=== PATIENT | male | born 1940 | race Caucasian/White ===

== ENCOUNTER 2016-11-13 11:37 | Day surgery (SDC) | payer OTHER ==
[~2016-11-13 11:37] MED LIST: CALTRA600D PO; CELEXA40 MG PO; CRESTOR10 PO; FISH-EPA1000 MG PO; FLAXSEED OIL1000 MG PO; GLUCCHONDR PO; LEVOTHYROXIN75 MCG PO; MULTIVITAMI1 PO; NEXIUM40 PO; PRILOSEC40 MG PO
[2016-11-13 12:16] LABS: BASOPHILS 0.3 %; BASOPHILS ABSOLUTE 0.02 10/3/uL (0.0-0.16); EOSINOPHILS 1.3 %; EOSINOPHILS ABSOLUTE 0.08 10/3/uL (0.0-0.53); HEMOGLOBIN 14.2 g/dL (13.6-17.8); IMMATURE GRANULOCYTES 0.2 %; IMMATURE GRANULOCYTES ABSOLUTE 0.01 10/3/uL (0.0-0.11); LYMPHOCYTES 34.2 %; LYMPHOCYTES ABSOLUTE 2.03 10/3/uL (0.67-4.30); MEAN CORPUS HGB CONC 33.8 g/dL (32.0-36.0); MEAN CORPUSCULAR HEMOGLOB 31.5 pg (26.0-34.0); MEAN CORPUSCULAR VOLUME 93.1 fL (80-100); MEAN PLATELET VOLUME 9.5 fL (9.2-13.0); MONOCYTES 7.1 %; MONOCYTES ABSOLUTE 0.42 10/3/uL (0.21-1.20); NEUTROPHILS 56.9 %; NEUTROPHILS ABSOLUTE 3.37 10/3/uL (2.02-8.40); PLATELET COUNT 177 10/3/uL (150-400); RBC DISTRIBUTION WIDTH 13.9 % (12.0-16.0); RED CELL COUNT 4.51 10/6/uL (4.7-6.1); WHITE BLOOD CELLS 5.9 10/3/uL (4.5-10.5)
[2016-11-13 12:17] LABS: MANUAL DIFF NO %
[2016-11-13 12:25] LABS: INTERNATIONAL NORMAL RATI 1.1 UNITS (-); PARTIAL THROMBO TIME 26.8 SEC (22.5-37.2); PROTIME (NOT ORD) 13.8 SEC (12.0-14.5)
[2016-11-13 12:31] LABS: BUN (BLOOD UREA NITROGEN) 19 MG/DL (6-23); CALCIUM, SERUM 8.9 MG/DL (8.5-10.4); CHLORIDE, SERUM 110 MMOL/L (96-112); CO2 (CARBON DIOXIDE) 28 MMOL/L (24-34); CREATININE 0.94 MG/DL (0.70-1.30); GFR AFRICAN AMERICAN 90 ML/MIN (>=60); GFR NON AFRICAN AMERICAN 78 ML/MIN (>=60); GLUCOSE, SERUM 96 MG/DL (60-99); SODIUM, SERUM 145 MMOL/L (135-148)
== END 2016-11-13 17:07 | disposition home or self-care (01) ==
LOC: SDC 11:37
PROVIDERS: Otolaryngology
PROC: 0WB60ZZ Excision of Neck, Open Approach (ICD-10-PCS; principal; 2016-11-13 13:15)
DX: C44.42 Squamous cell carcinoma of skin of scalp and neck (principal); C91.90 Lymphoid leukemia, unspecified not having achieved remission; E03.9 Hypothyroidism, unspecified; K21.9 Gastro-esophageal reflux disease without esophagitis; Z85.46 Personal history of malignant neoplasm of prostate; Z90.89 Acquired absence of other organs
CPT/HCPCS: 80048; 85025; 85610; 85730; 88307; 88331; 88342; 93005; A9270-GY; J0690; J3010